=== PATIENT | female | born 1995 | race Caucasian/White ===

== ENCOUNTER → 2019-12-25 10:22 | Outpatient (BNVA) | payer OTHER, SELFPAY | PROVIDERS: Family Provider Family Medicine; PCP Family Medicine; Visit Provider Nurse Practitioner | DX: J02.9 Acute pharyngitis, unspecified (principal); R50.9 Fever, unspecified; J06.9 Acute upper respiratory infection, unspecified | CPT/HCPCS: 87081; 87804; 87880 ==

== ENCOUNTER → 2021-06-21 14:40 | Outpatient (BNVA) | payer OTHER, SELFPAY | PROVIDERS: Family Provider Family Medicine; PCP Family Medicine; Visit Provider Nurse Practitioner Women's Health | DX: Z01.419 Encounter for gynecological examination (general) (routine) without abnormal findings (principal); Z11.3 Encounter for screening for infections with a predominantly sexual mode of transmission; N76.3 Subacute and chronic vulvitis; Z01.411 Encounter for gynecological examination (general) (routine) with abnormal findings; Z30.45 Encounter for surveillance of transdermal patch hormonal contraceptive device | CPT/HCPCS: 87491; 87591; 87661; 88175 ==

== ENCOUNTER → 2021-09-29 15:35 | Outpatient (BNVA) | payer OTHER, SELFPAY | PROVIDERS: Family Provider Family Medicine; PCP Family Medicine; Visit Provider Nurse Practitioner Women's Health | DX: N76.3 Subacute and chronic vulvitis (principal) | CPT/HCPCS: 88305 ==

== ENCOUNTER → 2022-04-21 14:25 | Outpatient (BNVA) | payer OTHER, SELFPAY | PROVIDERS: Family Provider Family Medicine; PCP Family Medicine; Visit Provider Nurse Practitioner Women's Health | DX: L25.9 Unspecified contact dermatitis, unspecified cause (principal); Z11.3 Encounter for screening for infections with a predominantly sexual mode of transmission; N76.0 Acute vaginitis; B96.89 Other specified bacterial agents as the cause of diseases classified elsewhere | CPT/HCPCS: 86592; 86803; 87340; 87491; 87591; 87661; 87806 ==

== ENCOUNTER → 2022-04-26 10:30 | Outpatient (BNVA) | payer OTHER, SELFPAY | PROVIDERS: Family Provider Family Medicine; PCP Family Medicine; Visit Provider Nurse Practitioner Women's Health | DX: Z21 Asymptomatic human immunodeficiency virus [HIV] infection status (principal) | CPT/HCPCS: 87536 ==

== ENCOUNTER 2022-07-18 07:51 | Outpatient (CLI) | payer OTHER, SELFPAY ==
--- NOTE | 2022-07-18 07:57 | US_ITS ---
WS: [id number] ULTRASOUND LEFT BREAST HISTORY: N63.20 - Unspecified lump in the left breast, 27-year-old. COMPARISON: None available. TECHNIQUE: 2-D and Doppler. Ultrasound directed to the 3:00 in the area the palpable abnormality. There is normal dense fibroglan dular breast tissue. No mass or distortion. No shadowing. No cyst. US/US breast LT limited* [id number] IMPRESSION: BI-RADS: 1-Negative FOLLOW-UP: See Report No mass identified LEFT breast at 3:00 in the area of clinical concern.
== END 2022-07-18 07:52 | disposition home or self-care (01) ==
LOC: RAD 07:51
PROVIDERS: PCP Family Medicine; Visit Provider Nurse Practitioner Women's Health
DX: N63.25 Unspecified lump in the left breast, overlapping quadrants (principal)
CPT/HCPCS: 76642

== ENCOUNTER 2022-08-25 07:35 | Outpatient (CLI) | payer OTHER, SELFPAY ==
--- NOTE | 2022-08-25 07:15 | MR_ITS ---
WS: [id number] MRI LEFT KNEE NONCONTRAST TECHNIQUE: Axial PD, coronal PD fat sat, coronal PD, sagittal PD, and sagittal PD fat-sat images obta ined. CLINICAL INFORMATION: possible ACL tear on left COMPARISON: None. FINDINGS: Distal quadriceps tendon is intact. Patellar tendon appears intact. Moderate suprapatellar effusion f usion. Lateral dislocation/subluxation of the patella from the trochlear groove. Shallow trochlear gr oove. High-grade tear of the medial patellar retinaculum. Typical patellar dislocation contusion bethany mary jo involving the medial pole of the patella and lateral femoral condyle with T2 hyperintensity in fu janna. No definite visualized intra-articular chondral afragments. Peripheral extrusion of the lateral meniscus with grade IV chondromalacia and full-thickness cartilag e defects. Tear of the lateral meniscus extending to the meniscal root. Fluid extending along the per ipheral undersurface of the meniscus compatible with capsular tear. Suggestion of a small displaced f ragment into the intercondylar fossa. Blunting of the anterior horn. Additional subchondral cystic ch she and edema involving the lateral femoral condyle has a more chronic appearance. Small amount of fluid and edema along the MCL. LCL appears intact. Normal popliteal fossa. MR/MR knee LT wo con* [id number] IMPRESSION: 1. Normal ACL and PCL. 2. Persistent patella subluxation/dislocation from the shallow trochlear groov e. Typical patella and femoral condyle contusion pattern. 3. High-grade tear of the medial patellar retinaculum. Small amount of edema a nd fluid along the MCL consistent with grade one injury. 4. No visualized avulsed intra-articular chondral fragments. 5. Peripheral extrusion lateral meniscus with complex high-grade tears some of which may be chronic. Full-thickness cartilage defects involving the lateral j oint compartment. Tear extends to the meniscal root and free edge of the menisc us involving the capsule 6. Suggestion of a tiny displaced meniscal fragment in the intercondylar notch . 7. Subchondral cystic change and edema involving the medial femoral condyle. 8. Moderate suprapatellar effusion. Outbridge grading: grade IV: full-thickness cartilage loss with underlying bone reactive changes
== END 2022-08-25 07:36 | disposition home or self-care (01) ==
LOC: RAD 07:36
PROVIDERS: PCP Family Medicine; Visit Provider Family Medicine
DX: S83.512A Sprain of anterior cruciate ligament of left knee, initial encounter (principal); M22.12 Recurrent subluxation of patella, left knee; R60.0 Localized edema; M25.462 Effusion, left knee; S83.272A Complex tear of lateral meniscus, current injury, left knee, initial encounter; X58.XXXA Exposure to other specified factors, initial encounter
CPT/HCPCS: 73721

== ENCOUNTER 2022-10-11 06:37 | Day surgery (SDC) | payer OTHER, SELFPAY ==
[2022-10-10 11:41] VITALS: BMI 37.4
[2022-10-11] VITALS (13 sets, daily range): BP systolic 110–130; BP diastolic 8–96; PULSE 83–102; RESP 12–20; TEMP 36.1–36.3; O2SAT 93–99
--- NOTE | 2022-10-11 07:19 | P.ANESASSM_ITS ---
Pre-Anesthetic Assessment Height/Weight: Height 1.65 m Weight 102.058 kg O2 Del Method 10/11/22 07:02 Preop Diagnosis: Left knee lateral meniscal tear, lateral compartment cho ndromalacia Operation Date: 10/11/22 08:00 Proposed Procedures p Left knee diagnostic and surgical arthroscopy with lateral meniscus root repair 12458 and 43951,S83.282A, M24.10 and S83.005A(Left) - Lawson Araujo DO s Meniscal Root Repair(Left) - Lawson Araujo DO Familial anesthetic complications: None Was Beta Angela taken within 24 hours: N/A Was Clonidine taken within 24 hours: N/A Last intake: Intake Last Liquid Date 10/10/22 Last Liquid Time 23:00 Last Solid Date 10/10/22 Last Solid Time 23:00 Social No alcohol and No tobacco vapes Airway Mallampati: Class I Dentition: caps Metabolic Morbid Obesity Anesthetic Plan ASA status: 2 Anesthesia: General and Regional (specify below) Risk of > 500 ml blood loss (7ml/kg in children): No Medications/Allergies Home Medications Medication Instructions Recorded Confirmed Last Taken Type phentermine 37.5 mg capsule 37.5 mg PO DAILY 06/21/21 10/10/22 10/03/22 History ketoconazole 2 % topical cream 1 applic topical BID PRN Rash 04/21/22 10/10/22 Unknown History Xulane 150 mcg-35 mcg/24 hr 1 patch transdermal Q7D #9 ea 06/21/22 10/10/22 10/09/22 Rx transdermal patch (norelgestromin-ethin.estradiol) hydroxyzine HCl 50 mg tablet 50 mg PO BID PRN Anxiety 06/21/22 10/10/22 07/03/22 History ibuprofen 800 mg tablet 800 mg PO TID PRN pain #60 tabs 08/16/22 10/10/22 10/03/22 Rx Allergies Allergy/AdvReac Type Severity Reaction Status Date / Time amoxicillin Allergy ALGY-Rash Verified 10/10/22 11:32 [facility] Anesthesia Medical History (Updated 09/18/22 @ 13:26 by Lawson Araujo DO) Anxiety started on Vistaril; managed by Neva Merchant Closed dislocation of left patella Defect of articular cartilage Depression Hypertension managed by PCP; not taking medication and readings have been normal. No pertinent past medical history neghx: dm,thyroid,dvt/pe PCP: Dr. Matos Tear of lateral meniscus of left knee Surgical History H/O knee surgery (2008) Left knee History of tonsillectomy Family History Father Diabetes Heart disease Hypertension Stroke Grandmother Diabetes Paternal grandmother Family history of thyroid problem Maternal grandmother Grandfather Diabetes Paternal grandfather Heart disease Maternal and Paternal grandfather Hypertension Paternal grandfather Mother Family history of thyroid problem Family/Other Family history of thyroid problem Maternal aunt Cervical cancer Maternal cousin--dx age unknown Breast cancer Paternal aunt--dx age unknown Maternal great aunt--dx age 50-60's Denies family history of Colon cancer Ovarian cancer Hyperlipidemia Uterine cancer Social History Smoking and tobacco status: current every day smoker (currently vapes) Data Anesthesia Cardiac Studies: No Data to Display
[2022-10-11] MEDS: acetaminophen 1,000 MG/100 ML PIGGYBACK 400 MG IV (07:38)
[2022-10-11] MEDS: ketorolac 30 mg/mL INJ IVP (07:39)
[2022-10-11] MEDS: sodium chloride 0.9% 1,000 ML 30 ML IV (07:39)
[2022-10-11] MEDS: midazolam 1 mg/mL INJ 2 mL 2 MG IVP (07:39)
--- NOTE | 2022-10-11 07:51 | W.PM.OPSUD ---
Surgery/Procedure H&P Update DATE OF PROCEDURE: October 11, 2022 DATE H&P PERFORMED: 09/18/22 CHANGES TO PREVIOUS DOCUMENTATION: None. Once again we did reiterate her injury to her knee with patellar dislocation and this being her first time dislocation. We will evaluate and treat the lateral meniscus tear and evaluate the chondromalacia of the lateral compartment. We did talk about her rehabilitation process with Dr. Shelton risk benefits complication alternatives surgical nonsurgical treatment options. She understanding her risks she agrees to proceed with surgical intervention of the left knee diagnostic and surgical arthroscopy with lateral meniscus repair possible root repair and lateral compartment chondroplasty versus microfracturing. We will see how she responds to conservative treatment with her first-time patellar dislocation however she is at higher risk given her TT TG distance. She understands and agrees to proceed with surgical intervention today. PREOP DIAGNOSIS: Left knee lateral meniscal tear, lateral compartment chondromalacia PRIMARY INDICATION FOR PROCEDURE: Left knee lateral meniscus tear, lateral compartment chondromalacia PLANNED PROCEDURE: Operation Date: 10/11/22 08:00 Proposed Procedures p Left knee diagnostic and surgical arthroscopy with lateral meniscus root repair 55368 and 32856,S83.282A, M24.10 and S83.005A(Left) - Lawson Araujo DO s Meniscal Root Repair(Left) - Lawson Araujo DO
--- NOTE | 2022-10-11 07:52 | ANES.PROC ---
Anesthesia Procedures Procedure/Date: 10/11/22 Nerve Block ^: Nerve Block 1: Main Anesthesia: general anesthesia Time Out Performed: Yes Consent: requested by attending/covering physician, from patient, from other, risks and benefits reviewed and patient agrees to proceed Nerve block location: adductor canal (L) Anesthesia monitors applied: pulse oximetry, EKG, BP cuff and oxygen Nerve block position: supine Anesthetic Used: ropivicaine 0.5% (30 ml) and with decadron (4 mg) Ultrasound used to: recognize landmarks and visualize and ID femerol nerve Nerve Stimulator Used?: No Interscalene/Femoral BLK: 4 stimuplex 21 g needle used for position and inplane approach, visualize local anesthetic spread and no vascular puncture identified Injection: neg aspiration of heme Patient Tolerated Procedure: well and no complications Complications: none
[2022-10-11 07:56] LABS: OR HCG Qualitative Urine Negative (Negative)
[2022-10-11] MEDS: clindamycin 600 MG/50 ML PREMIX 100 MG IV (08:10)
--- NOTE | 2022-10-11 09:28 | P.PCN_ITS ---
PACU note Narrative: VSS, Good respiratory effort, report to SHADE BANDER Exam: awake
--- NOTE | 2022-10-11 09:28 | PM.PACU ---
PACU note Narrative: VSS, Good respiratory effort, report to PRESCHOOL ASSISTANT Exam: awake
--- NOTE | 2022-10-11 09:41 | P.OP_ITS ---
Brief Operative Note Date of procedure: 10/15/22 Pre-op diagnosis: Left knee lateral meniscal tear, lateral compartment chondro malacia Post-op diagnosis: other (Left knee lateral compartment chondromalacia and extensive synovitis, no meniscal tear) Procedure Done: Left knee diagnostic and surgical arthroscopy with extensive synovectomy lateral, medial, patellofemoral compartments Left knee diagnostic and surgical arthroscopy with lateral compartment chondroplasty. Surgeon: Laswon Araujo Estimated blood loss (mL): 5 Complications: None Post-op Plan: Patient taken to PACU in stable condition recovering well. Patient received appropriate discharge directions as well as pain medication postoperatively. She will be weightbearing as tolerated to the left lower extremity we will begin rehabilitation for her left knee patellar dislocation. She will follow-up with me in the office in 2 weeks. Patient understands agrees with current plan. All questions answered. Condition: stable Disposition: same day Coding Level of Care Code Acute Content Development Specialist for Lynette Benjamin
--- NOTE | 2022-10-11 09:41 | PM.PACU ---
PACU note Narrative: Patient taken to PACU in stable condition. Patient recovering well. Patient able to wiggle toes plantarflex and dorsiflex ankle. Sensation intact light touch distally. Distal pulses palpable. Dressing on in place clean dry and intact Exam: awake Disposition: discharged
--- NOTE | 2022-10-11 09:41 | PM.OP ---
Operative Report Date of procedure: October 11, 2022 Pre-op diagnosis: Preop Diagnosis Left knee lateral meniscal tear, lateral compartment chondromalacia Post-op diagnosis: Left knee lateral compartment chondromalacia Left knee extensive synovitis Procedure done: Left knee diagnostic and surgical arthroscopy with extensive synovectomy lateral, medial, patellofemoral compartments Left knee diagnostic and surgical arthroscopy with lateral compartment chondroplasty Surgeon: Lawson Araujo DO Estimated blood loss: 5 mL 35 minutes IV fluids: See anesthesia record Urine output: See anesthesia record Complications: None Findings: See operative report narrative Condition: stable Disposition: same day Brief History: Patient was seen evaluated and worked up in the outpatient setting for a left knee injury. MRI reveals that patient had a patellar dislocation as well as findings consistent with a lateral meniscal root tear and lateral compartment grade IV chondromalacia as well as MPFL injury and bone bruising consistent with a prior patellar dislocation. History reveals this was her first time dislocation. She did have a OCD lesion back according to patient when she was roughly [age] done in [place] where she underwent retrograde drilling and subsequently bio tack screws were placed to repair the chondral injury in the lateral compartment. At this point time we had a detailed discussion in the outpatient setting about her MRI findings as well as physical exam findings. Given she has had no issues with patellar instability prior to this injury but she does have concerning finding of meniscal root injury as well as chondromalacia and given her young age we talked about focusing on her intra-articular articular pathology. At this point in time we talked about nonoperative and operative intervention. We talked about risk benefits complication alternatives to each. At this point time would recommend left knee diagnostic and surgical arthroscopy with evaluation of meniscal tear with repair and lateral compartment chondroplasty versus microfracturing. Plan was to treat the first time dislocation with therapy and rehab and will address at a later date if recurrent patellar instability ends up occurring. She understands and agrees to proceed with current plan. All questions answered at this time. Consent reviewed and signed with patient. Procedure: Patient seen evaluated in preoperative holding area. Consent reviewed and signed with patient. Correct extremity was then marked. Patient was seen evaluated by the anesthesia department. Once cleared for surgery she was taken back to the operative suite. She was placed in supine position and underwent anesthesia per the anesthesia department. All bony prominences well-padded patient was appropriate secured to the bed. The left lower extremity was then prepped and draped in standard orthopedic fashion. Prior to prepping and draping a nonsterile tourniquet applied to the left lower extremity thigh. Final timeout performed. Patient received appropriate preoperative antibiotics. Esmarch tourniquet was used exsanguinate the left lower extremity to 250 mmHg. Patient had previous portal sites that were horizontal in nature she underwent a 2 portal horizontal incision diagnostic and surgical arthroscopy. Starting with inferior lateral portal and horizontal fashion. I then introduced the trocar and the arthroscope into the suprapatellar pouch. Visualization of the suprapatellar pouch was free of loose bodies. No hemorrhagic hemarthrosis was noted. Next I then evaluated the patellofemoral compartment which had extensive synovitis and impingement underneath the patellofemoral compartment. Next I then visualized the medial gutter which was free of loose bodies. I then entered the medial compartment and established my medial portal utilizing a spinal needle outside in technique. Another horizontal incision was then made in the arthroscopic shaver was then introduced to the medial compartment. I then used a shaver to perform a medial compartment synovectomy. I then under valgus stress evaluated the medial compartment which had grade I chondromalacia and overall pristine articular cartilage as well as pristine meniscus. I introduced the arthroscopic probe and probed the root to the medial meniscus the medial meniscus was intact. This completed my work medially and I introduced the arthroscope to the intercondylar notch the intercondylar notch had an intact ACL and PCL and I did perform a small synovectomy of the intercondylar notch area. Next the knee was placed into a [id number] positioning and arthroscope immediately identified a small unstable cartilage piece very focal on the weightbearing portion of the lateral femoral condyle. This was grade 2 3 and the small focal area. Shaver was used to debride to stable tissue. This was not taken down to subchondral bone as given patient's age plan was to preserve as much articular cartilage as possible. Next the knee was then held in [id number] position and I then evaluated the lateral meniscus. The lateral meniscus was found to be pristine with no meniscal root tear when this was probed with arthroscopic probe. I did visualize a small remnant of what appeared to be at the footprint of the ACL traversing across the lateral tibial plateau along the lateral edge of the ACL originating near the footprint by the anterior horn and extending posteriorly near the meniscal root. This was evaluated and not found to be any reminiscent of a previous meniscal tear and this did not actually have fibers that appear to be completely congruent with the ACL and the ACL bundles appeared intact. At this point time the small band of tissue was excised and I do feel as though this was likely the cause of the signal change concerning for possible complex posterior horn meniscal tear of the lateral meniscus extending to the root. Once this was removed I then utilized the arthroscopic probe and the lateral meniscal root was once again probed and found to be an intact with no evidence of lateral meniscal tear. At this point time I then thoroughly evaluated the lateral compartment and at the area of which the kneecap dislocated on the nonweightbearing portion of the lateral femoral condyle there did appear to be a large grade IV chondromalacia of this area of the lateral femoral condyle. A lateral compartment chondroplasty was then performed utilizing arthroscopic shaver and thermal wand to debride to stable tissue. This was nonweightbearing in nature at this point time I felt no necessary need for any planned of complex OCD repair as this was nonweightbearing in nature. Next I evaluated the lateral gutter which was free of loose bodies. I then brought myself back into the patellofemoral compartment and performed my extensive synovectomy. The patella appeared to tilt slightly lateral but was within the groove. I then test its stability and was unable to dislocate the kneecap with translation. Patient would translate to the lateral femoral condyle but no bernardo instability or dislocation was able to be reproduced. At this point time the knee was thoroughly irrigated. Fluid was suctioned from the knee all instruments and trochars and arthroscope were removed. Tourniquet deflated. Hemostasis satisfactory. Portal sites were then closed with interrupted nylon suture. Xeroform 4 x 4's and a bulky soft dressing and Everette wrap were then applied to the left lower extremity. Patient was then awakened from anesthesia and taken to PACU in stable condition. Disposition: Patient taken to PACU stable condition. Patient recovering well. Pain controlled. She will be weightbearing as tolerated to the left lower extremity. She received appropriate discharge instructions as well as pain medication DVT prophylaxis postoperatively. We will begin an aggressive PT for working on strengthening and range of motion as well as rehabilitation for VMO in order to conservatively treat her patellar dislocation. We will get her in a patellar stabilizing brace. We will see her back in the office in 2 weeks. Patient understands and agrees with current plan. All questions answered.
[2022-10-11] MEDS: meperidine 50 mg/mL INJ 12.5 MG IVP (09:47)
--- NOTE | 2022-10-11 12:54 | ANE.PACU2 ---
Inpatient post-anesthesia follow up: Airway intact: Yes Vital signs: Temperature 97.0 F Pulse Rate 87 Respiratory Rate 18 Blood Pressure 129/85 Pulse Oximetry 99 Oxygen Delivery Me thod Room Air Oxygen Flow Rate 95 Fraction of Inspir ed Oxygen Hydration adequate: Yes Nausea and vomiting: No Pain level: 1 Mental status: Baseline
== END 2022-10-11 10:43 | disposition home or self-care (01) ==
PROVIDERS: Anesthesiology; PCP Family Medicine; Visit Provider Student in an Organized Health Care Education/Training Program
PROC: (CPT 29870; principal; 2022-10-11 07:50)
DX: M94.262 Chondromalacia, left knee (principal); M65.9 Synovitis and tenosynovitis, unspecified; E66.01 Morbid (severe) obesity due to excess calories; Z68.37 Body mass index [BMI] 37.0-37.9, adult; I10 Essential (primary) hypertension; F17.290 Nicotine dependence, other tobacco product, uncomplicated
CPT/HCPCS: 29876; 81025; 84703; J0131; J1100; J1885; J2175; J2250; J2704; J2795; J3010; J3490; J7030

== ENCOUNTER 2022-10-26 14:15 | Outpatient (CLI) | payer OTHER, SELFPAY | END 2022-10-26 14:16 | disposition home or self-care (01) | LOC: SPT 14:16 | PROVIDERS: PCP Family Medicine; Visit Provider Student in an Organized Health Care Education/Training Program | DX: Z47.89 Encounter for other orthopedic aftercare (principal) | CPT/HCPCS: 97760; L1812 ==

== ENCOUNTER 2022-11-10 09:41 | Outpatient (RCR) | payer OTHER, SELFPAY | END 2022-11-14 23:59 | disposition home or self-care (01) | LOC: SPT 09:41 | PROVIDERS: PCP Family Medicine; Visit Provider Family Medicine | DX: Z98.890 Other specified postprocedural states (principal) | CPT/HCPCS: 97161 ==

== ENCOUNTER 2022-11-15 06:00 | Outpatient (RCR) | payer OTHER, SELFPAY | END 2022-12-12 23:59 | disposition home or self-care (01) | LOC: SPT 06:00 | PROVIDERS: PCP Family Medicine; Visit Provider Family Medicine | DX: Z98.890 Other specified postprocedural states (principal) | CPT/HCPCS: 97110; G0283 ==

== ENCOUNTER → 2022-12-08 09:24 | Outpatient (BNVA) | payer OTHER, SELFPAY | PROVIDERS: PCP Family Medicine; Visit Provider Nurse Practitioner Women's Health | DX: Z32.00 Encounter for pregnancy test, result unknown (principal); N92.6 Irregular menstruation, unspecified | CPT/HCPCS: 81025; 84315 ==

== ENCOUNTER 2022-12-13 06:00 | Outpatient (RCR) | payer OTHER, SELFPAY | END 2022-12-28 23:59 | disposition home or self-care (01) | LOC: SPT 06:00 | PROVIDERS: PCP Family Medicine; Visit Provider Family Medicine | DX: Z98.890 Other specified postprocedural states (principal) | CPT/HCPCS: 97110 ==

== ENCOUNTER → 2022-12-19 13:43 | Outpatient (BNVA) | payer OTHER, SELFPAY | PROVIDERS: PCP Family Medicine; Visit Provider Family Medicine | DX: Z34.90 Encounter for supervision of normal pregnancy, unspecified, unspecified trimester (principal); R30.0 Dysuria; Z34.00 Encounter for supervision of normal first pregnancy, unspecified trimester | CPT/HCPCS: 80307; 81000; 81025; 84144; 84443; 84702; 85025; 86592; 86762; 86803; 86850; 86900; 87086; 87340; 87491; 87591; 87624; 87806 ==

== ENCOUNTER 2023-01-12 09:05 | Outpatient (CLI) | payer OTHER, SELFPAY ==
--- NOTE | 2023-01-12 09:15 | US_ITS ---
WS: [id number] EARLY OBSTETRICAL ULTRASOUND (<14 WEEKS). HISTORY: Dating US - Unclear LMP COMPARISON: None available. Single intrauterine gestational sac is identified. Cardiac activity at 167 BPM. [place]-rump length tenisha sures 7.0 cm which corresponds to a gestation of 13w1d. Normal-appearing yolk sac and amnion demonstr ated. No subchorionic hemorrhage. No free fluid. Normal size ovaries with no mass. US/US OB <= 14 weeks fetus [id number] IMPRESSION: 1. Single intrauterine gestation of 13 weeks 1 day with an EDC of 07/19/2023. 2. Normal cardiac activity.
== END 2023-01-12 09:06 | disposition home or self-care (01) ==
PROVIDERS: PCP Family Medicine; Visit Provider Family Medicine
DX: Z36.87 Encounter for antenatal screening for uncertain dates (principal); Z3A.13 13 weeks gestation of pregnancy
CPT/HCPCS: 76801

== ENCOUNTER → 2023-01-24 09:39 | Outpatient (BNVA) | payer MEDICAID, SELFPAY | PROVIDERS: PCP Family Medicine; Visit Provider Family Medicine | DX: O16.9 Unspecified maternal hypertension, unspecified trimester (principal); Z3A.00 Weeks of gestation of pregnancy not specified | CPT/HCPCS: 84156 ==

== ENCOUNTER → 2023-02-12 10:39 | Outpatient (BNVA) | payer MEDICAID, SELFPAY | PROVIDERS: PCP Family Medicine; Visit Provider Family Medicine | DX: Z34.00 Encounter for supervision of normal first pregnancy, unspecified trimester (principal); R03.0 Elevated blood-pressure reading, without diagnosis of hypertension | CPT/HCPCS: 81511 ==

== ENCOUNTER 2023-03-08 08:44 | Outpatient (CLI) | payer MEDICAID, SELFPAY ==
--- NOTE | 2023-03-08 08:45 | US_ITS ---
WS: [id number] ULTRASOUND OB COMPLETE TECHNIQUE: Complete ultrasound. CLINICAL INFORMATION: Anatomy US - 6 weeks from now COMPARISON: January 12, 2023 FINDINGS: Cervix measures 3.4 cm Single interuterine gestation is identified with vertex presentation. Placenta is anterior. Placenta grade 0. Normal amniotic fluid volume. cardiac activity: 141 BPM. AGA: 21w3d TATY by ultrasound: 07/16/2023 Estimated weight: 422 g; 15 ounces BDP: 4.9 cm = 20w6d HC: 19.0 cm = 21w2d AC: 14.8 cm = 20w0d FEMUR LENGTH: 4.0 cm = 23w0d Anatomic survey:Incomplete four-chamber heart view. Incomplete profile. Anatomic survey is otherwise normal. Normal stomach. Kidneys and bladder are normal. Normal 3 vessel cord. Normal 3 vessel cord insertion. Normal spine. Intracranial contents are normal. Normal posterio r fossa and cisterna magna. US/US OB >= 14 weeks fetus [id number] IMPRESSION: 1. Single intrauterine with visualized cardiac activity. AGA 21w3d w ith TATY 07/16/2023. 2. Placenta is anterior. No evidence of abruption or previa. 3. Incomplete four-chamber heart view. Incomplete profile. 4. Anatomic survey otherwise normal. 5. Normal amniotic fluid volume.
== END 2023-03-08 08:45 | disposition home or self-care (01) ==
LOC: RAD 08:45
PROVIDERS: PCP Family Medicine; Visit Provider Family Medicine
DX: Z36.9 Encounter for antenatal screening, unspecified (principal)
CPT/HCPCS: 76805

== ENCOUNTER 2023-04-02 07:45 | Outpatient (CLI) | payer MEDICAID, SELFPAY ==
--- NOTE | 2023-04-02 08:00 | US_ITS ---
WS: [id number] ULTRASOUND OB FOCUSED HISTORY: Follow up heart, lips and nose. COMPARISON: 03/08/2023 Intrauterine gestation in cephalic position. Cervix is closed at 3.7 cm. Normal amount of surrounding amniotic fluid. heart rate at 150 BPM. Four-chamber heart is identified. Normal position of the heart. Normal outflow tracts. Additional jose ging of the nose and lips has been submitted which appears normal also. US/US OB limited [id number] IMPRESSION: Normal additional imaging of the heart including outflow tracts, lips and nose.
== END 2023-04-02 07:46 | disposition home or self-care (01) ==
PROVIDERS: PCP Family Medicine; Visit Provider Family Medicine
DX: Z34.00 Encounter for supervision of normal first pregnancy, unspecified trimester (principal)
CPT/HCPCS: 76815

== ENCOUNTER → 2023-04-23 10:09 | Outpatient (BNVA) | payer MEDICAID, SELFPAY | PROVIDERS: PCP Family Medicine; Visit Provider Family Medicine | DX: Z34.00 Encounter for supervision of normal first pregnancy, unspecified trimester (principal); Z3A.00 Weeks of gestation of pregnancy not specified; R03.0 Elevated blood-pressure reading, without diagnosis of hypertension | CPT/HCPCS: 82950 ==

== ENCOUNTER → 2023-04-27 10:02 | Day surgery (SDC) | payer MEDICAID, SELFPAY ==
[2023-04-27 10:10] VITALS: BP 148/87; PULSE 128; RESP 18; TEMP 36.3; O2SAT 98
[2023-04-27 12:06] VITALS: BP 148/87; PULSE 128; RESP 18; TEMP 36.3; O2SAT 98
== END ==
LOC: GILAB 10:03
PROVIDERS: PCP Family Medicine; Visit Provider Family Medicine
DX: O26.899 Other specified pregnancy related conditions, unspecified trimester (principal); Z67.91 Unspecified blood type, Rh negative; Z3A.00 Weeks of gestation of pregnancy not specified
CPT/HCPCS: 36415; 86850; 86900; 90384; 96372

== ENCOUNTER → 2023-05-09 09:09 | Outpatient (BNVA) | payer MEDICAID, SELFPAY | PROVIDERS: PCP Family Medicine; Visit Provider Family Medicine | DX: O99.810 Abnormal glucose complicating pregnancy (principal); Z3A.00 Weeks of gestation of pregnancy not specified | CPT/HCPCS: 82951; 82952 ==

== ENCOUNTER → 2023-05-21 11:27 | Outpatient (BNVA) | payer MEDICAID, SELFPAY | PROVIDERS: PCP Family Medicine; Visit Provider Family Medicine | DX: Z34.00 Encounter for supervision of normal first pregnancy, unspecified trimester (principal); Z3A.00 Weeks of gestation of pregnancy not specified; R03.0 Elevated blood-pressure reading, without diagnosis of hypertension; I10 Essential (primary) hypertension; Z51.81 Encounter for therapeutic drug level monitoring | CPT/HCPCS: 80053; 82570; 84156; 84550; 85025 ==

== ENCOUNTER → 2023-06-19 10:26 | Outpatient (BNVA) | payer MEDICAID, SELFPAY | PROVIDERS: PCP Family Medicine; Visit Provider Family Medicine | DX: O13.9 Gestational [pregnancy-induced] hypertension without significant proteinuria, unspecified trimester (principal); O09.93 Supervision of high risk pregnancy, unspecified, third trimester; I10 Essential (primary) hypertension; Z3A.00 Weeks of gestation of pregnancy not specified | CPT/HCPCS: 82570; 84156 ==

== ENCOUNTER 2023-06-21 09:55 | Outpatient (CLI) | payer MEDICAID, SELFPAY ==
--- NOTE | 2023-06-21 10:00 | US_ITS ---
WS: [id number] BIOPHYSICAL PROFILE AND LIMITED OB. HISTORY: gestational HTN COMPARISON: 01/12/2023, 04/02/2023 Presentation: Vertex. Cervix: Closed and normal length. Placenta: Anterior, no previa or abruption. Grade: 1 HEART: FHR of 153BPM. measurements: BPD = 8.8 cm = 35w3d; 57th percentile HC = 32.6 cm = 36w6d; 57th percentile AC = 30.5 cm = 34w3d; 34th percentile FL = 6.9 cm = 35w1d; 41st percentile ABELINO: 18.1 centimeters. EFW: 2572g; 57th percentile AGA by ultrasound: 35w3d TATY by ultrasound: 07/23/2023 Measurements are internally concordant. Appropriate growth since the first trimester ultrasound. Biophysical profile: Parameters are as follows: Breathin Movement: 2 Tone: 2 Fluid volume: 2 IMPRESSION: 1. Biophysical profile score: 8/8. 2. Single intrauterine gestation of 35w3d with an EDC of 07/23/2023. Appropriate growth since the fir st trimester ultrasound. No growth asymmetry. 3. Normal amniotic fluid.
== END 2023-06-21 09:56 | disposition home or self-care (01) ==
LOC: RAD 09:55
PROVIDERS: PCP Family Medicine; Visit Provider Family Medicine
DX: O13.3 Gestational [pregnancy-induced] hypertension without significant proteinuria, third trimester (principal); O09.93 Supervision of high risk pregnancy, unspecified, third trimester; Z3A.35 35 weeks gestation of pregnancy
CPT/HCPCS: 76815; 82570; 84156

== ENCOUNTER 2023-06-25 10:39 | Outpatient (CLI) | payer MEDICAID, SELFPAY ==
[2023-06-25 10:39] VITALS: BMI 46.7
[2023-06-25 10:58] VITALS: BP 165/104; PULSE 114
[2023-06-25 11:13] VITALS: BP 163/95; PULSE 108
[2023-06-25 11:20] VITALS: BP 127/74; PULSE 103
[2023-06-25 11:23] VITALS: BP 128/76; PULSE 110
[2023-06-25 11:27] VITALS: BP 128/79; PULSE 100
[2023-06-25 11:44] VITALS: BP 124/77; PULSE 102
== END 2023-06-25 11:50 | disposition home or self-care (01) ==
LOC: OPOB 10:48 → OBGYN 10:49
PROVIDERS: PCP Family Medicine; Visit Provider Family Medicine
DX: O24.419 Gestational diabetes mellitus in pregnancy, unspecified control (principal); Z3A.00 Weeks of gestation of pregnancy not specified
CPT/HCPCS: 59025; 84156; 99211

== ENCOUNTER → 2023-06-26 10:29 | Outpatient (BNVA) | payer MEDICAID, SELFPAY | PROVIDERS: PCP Family Medicine; Visit Provider Family Medicine | DX: O09.93 Supervision of high risk pregnancy, unspecified, third trimester (principal) | CPT/HCPCS: 87081 ==

== ENCOUNTER 2023-06-28 09:47 | Outpatient (CLI) | payer MEDICAID, SELFPAY ==
--- NOTE | 2023-06-28 09:45 | US_ITS ---
WS: [id number] BIOPHYSICAL PROFILE AMNIOTIC FLUID HISTORY: gestational HTN COMPARISON: 06/21/2023 position: Vertex. Cardiac activity: 153 bpm. Cervix: Obscured by the head. Parameters are as follows: Breathin Movement: 2 Tone: 2 Fluid volume: 2 Amniotic Fluid Index: 17.7 cm; single deep vertical pocket 6.0 cm. IMPRESSION: 1. Biophysical profile score: 8/8. 2. Normal amniotic fluid.
== END 2023-06-28 09:48 | disposition home or self-care (01) ==
PROVIDERS: PCP Family Medicine; Visit Provider Family Medicine
DX: O13.9 Gestational [pregnancy-induced] hypertension without significant proteinuria, unspecified trimester (principal); Z3A.00 Weeks of gestation of pregnancy not specified
CPT/HCPCS: 76815

== ENCOUNTER 2023-07-02 11:11 | Outpatient (CLI) | payer MEDICAID, SELFPAY ==
[2023-07-02 11:29] VITALS: BMI 47.2
[2023-07-02 11:32] VITALS: BP 134/89; PULSE 92
[2023-07-02 12:00] VITALS: RESP 18
[2023-07-02 12:11] VITALS: BP 143/86; PULSE 90
== END 2023-07-02 12:20 | disposition home or self-care (01) ==
LOC: OPOB 11:13 → OBGYN 11:16
PROVIDERS: PCP Family Medicine; Visit Provider Family Medicine
DX: O24.419 Gestational diabetes mellitus in pregnancy, unspecified control (principal); Z3A.00 Weeks of gestation of pregnancy not specified
CPT/HCPCS: 59025

== ENCOUNTER 2023-07-05 10:18 | Outpatient (CLI) | payer MEDICAID, SELFPAY ==
--- NOTE | 2023-07-05 10:15 | US_ITS ---
WS: [id number] BIOPHYSICAL PROFILE AND LIMITED OB. HISTORY: gestational HTN COMPARISON: 06/28/2023 Presentation: Vertex. Cervix: Closed and normal length. Placenta: Anterior, no previa or abruption. Grade: 1 HEART: FHR of 147BPM. Biophysical profile: Parameters are as follows: Breathin Movement: 2 Tone: 2 Fluid volume: 2 Amniotic fluid index: 19.9 cm. Single deep vertical pocket 6.8 cm. IMPRESSION: 1. Biophysical profile score: 8/8. 2. Normal amniotic fluid.
== END 2023-07-05 10:19 | disposition home or self-care (01) ==
PROVIDERS: PCP Family Medicine; Visit Provider Family Medicine
DX: O13.9 Gestational [pregnancy-induced] hypertension without significant proteinuria, unspecified trimester (principal); Z3A.00 Weeks of gestation of pregnancy not specified
CPT/HCPCS: 76815; 76819

== ENCOUNTER 2023-07-08 11:31 | Outpatient (CLI) | payer MEDICAID, SELFPAY ==
[2023-07-08 11:31] VITALS: BMI 47.7
[2023-07-08 11:52] VITALS: BP 143/89; PULSE 100; TEMP 36
[2023-07-08 12:08] VITALS: BP 153/96; PULSE 98
[2023-07-08 12:23] VITALS: BP 142/91; PULSE 96
[2023-07-08 12:58] VITALS: BP 142/91; PULSE 96
== END 2023-07-08 12:35 | disposition home or self-care (01) ==
LOC: OPOB 11:40 → OBGYN 11:41
PROVIDERS: PCP Family Medicine; Visit Provider Family Medicine
DX: O26.899 Other specified pregnancy related conditions, unspecified trimester (principal); R10.9 Unspecified abdominal pain
CPT/HCPCS: 59025; 99211

== ENCOUNTER 2023-07-09 11:42 | Outpatient (CLI) | payer MEDICAID, SELFPAY ==
[2023-07-09 11:50] VITALS: BP 193/109; PULSE 100
[2023-07-09 11:58] VITALS: BP 160/104; PULSE 107
[2023-07-09 12:01] VITALS: RESP 16
[2023-07-09 12:04] VITALS: BP 150/99; PULSE 103
[2023-07-09 12:22] VITALS: BP 150/99; PULSE 103
== END 2023-07-09 12:25 | disposition home or self-care (01) ==
LOC: OPOB 11:42 → OBGYN 11:44
PROVIDERS: PCP Family Medicine; Visit Provider Family Medicine
DX: O26.899 Other specified pregnancy related conditions, unspecified trimester (principal); Z3A.00 Weeks of gestation of pregnancy not specified
CPT/HCPCS: 59025

== ENCOUNTER → 2023-07-10 10:44 | Outpatient (BNVA) | payer MEDICAID, SELFPAY | PROVIDERS: PCP Family Medicine; Visit Provider Family Medicine | DX: O13.9 Gestational [pregnancy-induced] hypertension without significant proteinuria, unspecified trimester | CPT/HCPCS: 84156 ==

== ENCOUNTER 2023-07-16 09:13 | Outpatient (CLI) | payer MEDICAID, SELFPAY ==
--- NOTE | 2023-07-16 09:30 | US_ITS ---
WS: [id number] ULTRASOUND OB LIMITED TECHNIQUE: Limited ultrasound examination of the fetus. G1, P0 CLINICAL INFORMATION: gestational HTN COMPARISON: 07/05/2023 FINDINGS: Single interuterine gestation. presentation is vertex placental location is anterior. Placenta grade: 2 heart rate 129 BPM. Normal ABELINO 10.4 cm Single deep vertical pocket measuring 4.5 cm Biophysical profile 8 out of 8. breathin movement: 2 tone: 2 Amniotic fluid: 2 IMPRESSION: Normal biophysical profile 8 out of 8
== END 2023-07-16 09:14 | disposition home or self-care (01) ==
LOC: RAD 09:13
PROVIDERS: PCP Family Medicine; Visit Provider Family Medicine
DX: O13.9 Gestational [pregnancy-induced] hypertension without significant proteinuria, unspecified trimester (principal); Z3A.00 Weeks of gestation of pregnancy not specified
CPT/HCPCS: 76819

== ENCOUNTER 2023-07-16 11:22 | Outpatient (CLI) | payer MEDICAID, SELFPAY ==
[2023-07-16 11:35] VITALS: RESP 16; BMI 46.5
[2023-07-16 12:01] VITALS: RESP 16
== END 2023-07-16 12:01 | disposition home or self-care (01) ==
LOC: OPOB 11:22 → OBGYN 11:23
PROVIDERS: PCP Family Medicine; Visit Provider Family Medicine
DX: O24.419 Gestational diabetes mellitus in pregnancy, unspecified control (principal); Z3A.00 Weeks of gestation of pregnancy not specified
CPT/HCPCS: 59025

== ENCOUNTER 2023-07-17 17:50 | Inpatient (IN) | payer MEDICAID, SELFPAY ==
[2023-07-17] VITALS (25 sets, daily range): BP systolic 128–205; BP diastolic 60–123; PULSE 73–88; RESP 12–17; TEMP 37; BMI 43.1
[2023-07-17 18:47] LABS: Basophils % 0.4 %; Eosinophils # 0.2 10^3/uL (0.0-0.8); Hematocrit 35.2 % (36-47); Lymphocytes # 1.7 10^3/uL (0.8-4.8); Lymphocytes % 18.4 %; Mean Corpuscular HGB Conc 33.5 g/dL (30-55); Mean Corpuscular Hemoglobin 29.3 pg (27-33); Mean Corpuscular Volume 87.3 fl (85-98); Mean Platelet Volume 11.6 fL (7.4-10.4); Monocytes # 0.6 10^3/uL (0.2-0.9); Monocytes % 6.9 %; Neutrophils # 6.66 10^3/uL (1.8-7.7); Neutrophils % 71.9 %; Nucleated Red Blood Cells % 0 %; Platelet Count 250 10^3/cmm (157-399); Red Blood Count 4.03 10^6/uL (3.85-5.65); Red Cell Distribution Width 15.9 % (12.1-15.1); White Blood Count 9.28 10^3/uL (3.29-11.43)
[2023-07-17] MEDS: miSOPROStol 100 mcg tablet 25 MCG VAGINAL (18:49)
[2023-07-17 19:10] LABS: Add Urine Microscopic? YES; Bilirubin Urine Neg (Negative); Blood Urine Neg (Negative); Glucose Urine UA Norm (Normal); Ketones Urine Negative (Negative); Leukocyte Esterase Urine Negative (Negative); Nitrate Urine Negative (Negative); Protein Urine Neg (Negative); Specific Gravity, Urine 1.015 (1.005-1.030); Urine Appearance SL Hazy (CLEAR); Urine Color Yellow (Yellow); Urobilinogen Urine Norm (Negative); pH Urine 6 (5-7)
[2023-07-17 19:13] LABS: Alanine Aminotransferase 10 U/L (0-33); Albumin Level 3.3 g/dL (3.5-5.2); Alkaline Phosphatase 113 U/L (35-105); Aspartate Amino Transferase 16 U/L (0-32); Blood Urea Nitrogen 7 mg/dL (6-20); Calcium 8.6 mg/dL (8.5-10.5); Carbon Dioxide 18 mmol/L (22-29); Chloride 105 mmol/L (98-107); Globulin 2.6 g/dL (1.3-4.6); Glomerular Filtration Rate 149.1 mL/min (90-130); Glucose 108 mg/dL (65-115); Osmolality Calculated 281 mOsm/kg (285-295); Sodium 136 mmol/L (136-145); Total Bilirubin 0.2 mg/dL (0.15-1.2); Total Protein 5.9 g/dL (6.6-8.7); Uric Acid 4.5 mg/dL (2.4-5.7)
[2023-07-17 19:15] LABS: Bacteria Urine 1+ /hpf; RBC Urine 0-4 /hpf (0-2); Squamous Epithelial Cell Urine 0-4 /hpf (0-5); WBC Urine 0-4 /hpf (0-5)
[2023-07-17 19:16] LABS: Add Urine Culture? No
[2023-07-17 19:34] LABS: Urine Creatinine 50 mg/dL (28-217); Urine Protein Random 10 mg/dL
--- NOTE | 2023-07-17 20:43 | P.HP_ITS ---
Providers/Chief Complaint Primary Care Provider: Edgardo Matos MD Chief Complaint: IOL History of Present Illness Jamel Walton is a 28 year old @ 39.0 weeks by 13 wk US and unsure LMP. Preg c/b obesity, phentermine use prior to finding out she was , h/o chlamydia, cHTN, rubella non-immune, Rh negative, elevated 1-hr GTT with normal 3-hr GTT. The patient presented to labor and delivery triage for a scheduled induction of labor due to chronic hypertension with intermittent severe blood pressures. The patient feels well and denies any headaches, flashes of light, nausea, chest pain, shortness of breath, vomiting, diarrhea, constipation, dysuria, leakage of fluid, vaginal bleeding. Upon admission she was noted to be closed, thick and high. Review of Systems Narrative: See HPI Medications/Allergies Home Medications Medication Instructions Recorded Confirmed Last Taken Type patellar tracking brace #1 ea 10/26/22 07/16/23 04/27/23 Rx prenat.vits,loree,[id number]-aqvx-spcoy 1 tab PO DAILY 12/19/22 07/16/23 07/08/23 10:00 History labetalol 100 mg tablet 50 mg PO BID #30 tabs 05/21/23 07/16/23 Unknown Rx ferrous sulfate 325 mg (65 mg 325 mg PO DAILY #30 tabs 05/22/23 07/16/23 07/08/23 10:00 Rx iron) tablet Allergies Allergy/AdvReac Type Severity Reaction Status Date / Time amoxicillin Allergy ALGY-Rash Verified 04/27/23 11:23 PFSH Acute PFSH: Medical History Anxiety started on Vistaril; managed by Neva Merchant Closed dislocation of left patella Defect of articular cartilage Depression Hypertension managed by PCP; not taking medication and readings have been normal. No pertinent past medical history neghx: dm,thyroid,dvt/pe PCP: Dr. Matos Tear of lateral meniscus of left knee Surgical History H/O knee surgery (2008) Left knee History of arthroscopic knee surgery (~09/2022) History of tonsillectomy Family History Father Diabetes Heart disease from heart disease at age 53 Hypertension Stroke Grandmother Diabetes Paternal grandmother Family history of thyroid problem Maternal grandmother Grandfather Diabetes Paternal grandfather Heart disease Maternal and Paternal grandfather Hypertension Paternal grandfather Mother Family history of thyroid problem Family/Other Family history of thyroid problem Maternal aunt Cervical cancer Maternal cousin--dx age unknown Breast cancer Paternal aunt--dx age unknown Maternal great aunt--dx age 50-60's Denies family history of Colon cancer Ovarian cancer Hyperlipidemia Uterine cancer Social History Smoking and tobacco status: current every day smoker e-cigarettes E-Cigarette Details: vaporizer device E-cig/vape details: once an hour Female Reproductive History: : 1 Vitals/I&O/Wt Last Vital Signs Temp 98.6 F 07/17/23 19:55 Pulse 83 07/17/23 20:28 Resp 17 07/17/23 19:55 BP 146/92 07/17/23 20:28 O2 Del Method Room Air 07/17/23 19:55 Weight last 48 hrs Weight 259 lb Physical Exam Narrative: General: Alert and oriented x3 Eyes: Pupils equal round and reactive to light and accommodation Mouth: Mucous membranes moist, pharynx non-erythematous Cardiac: Regular rate and rhythm without murmurs Lungs: Clear to auscultation bilaterally without wheezes, crackles or rhonchi Abdomen: Soft, non-tender, fundus consistent with gestational age Extremities: +1 pitting edema in the bilateral lower extremities. Deep tendon reflexes are 2+ bilaterally in the bilateral knees. Data 07/17/23 18:25 07/17/23 18:25 A&P Assessment and plan (1) Supervision of high risk , unspecified, third trimester: The patient is feeling well overall at this time. We will proceed with induction of labor using Cytotec times up to 3 doses. heart tones are currently in the mid 140s with moderate variability and good accelerations. There is a category 1 tracing. The patient is not having any significant contractions. Due to the elevated blood pressures, we will watch for signs of hypertensive emergency. We will treat if needed. The patient's labs have been more consistent with chronic hypertension and not preeclampsia. Her 24-hour urine protein done on 07/10/2023 was 201. This is a decrease from the test done on 06/25/2023. We will certainly watch for signs of severe blood pressure readings and go from there. Currently she is not having symptoms concerning for severe features. All questions were answered. We will proceed with routine care otherwise. GBS is negative. The patient is rubella nonimmune. She is Rh- . (2) Gestational hypertension: (3) Rh negative status during : (4) Rubella non-immune status, antepartum: Attestations Medical Necessity Statement*: The patient will be here for greater than 2 midnights due to routine intrapartum and management of labor and delivery. Coding Level of Care Code Acute Code for [facility] Fwd Diagnoses Supervision of high risk , unspecified, third trimester O09.93 Gestational hypertension O13.9 Rh negative status during O26.899; Z67.91 Rubella non-immune status, antepartum O09.899; Z28.39
[2023-07-17] MEDS: fentaNYL 50 mcg/mL INJ 2mL IVP (22:36)
[2023-07-18] VITALS (104 sets, daily range): BP systolic 98–185; BP diastolic 50–127; PULSE 69–148; RESP 12–18; TEMP 35.9–36.9; O2SAT 96–100
[2023-07-18] MEDS: miSOPROStol 100 mcg tablet 25 MCG VAGINAL ×2 (00:25→05:14)
[2023-07-18] MEDS: fentaNYL 50 mcg/mL INJ 2mL IVP ×4 (00:38→05:18)
[2023-07-18] MEDS: labetalol 5 mg/mL SDV 20mL 20 MG IVP ×2 (01:33→05:31)
[2023-07-18] MEDS: ondansetron 2 mg/ML SDV 2 mL 4 MG IVP ×2 (04:27→11:03)
[2023-07-18] MEDS: lactated ringers 1,000 ML 999 ML IV (05:41)
[2023-07-18] MEDS: dextrose 5%-lactated ringers 1,000 ML 125 ML IV ×2 (06:49→07:30)
--- NOTE | 2023-07-18 07:20 | P.ANESASSM_ITS ---
Pre-Anesthetic Assessment Height/Weight: Height 1.65 m Weight 117.48 kg Temp Pulse Resp BP Pulse Ox O2 Del Method 97.0 F L 93 12 128/73 96 Room Air 07/18/23 04:12 07/18/23 07:15 07/18/23 05:18 07/18/23 07:15 07/18/23 07:13 07/17/23 19:55 epidural Familial anesthetic complications: none Was Beta Angela taken within 24 hours: Yes Was Clonidine taken within 24 hours: N/A Social No alcohol and No tobacco Exam alert, oriented x 3, clear to auscultation bilaterally and regular rate & rhythm Airway Submandibular: within normal limits Cervical ROM: within normal limits Mallampati: Class II Dentition: full Pulmonary None reported CV/HEM Anemia and Hypertension None reported Hepatic None reported GI None reported Metabolic Morbid Obesity [facility] None reported Neuropsych Anxiety and Depression Anesthetic Plan ASA status: 2 Anesthesia: Regional (specify below) Risk of > 500 ml blood loss (7ml/kg in children): No Medications/Allergies Home Medications Medication Instructions Recorded Confirmed Last Taken Type patellar tracking brace #1 ea 10/26/22 07/16/23 04/27/23 Rx prenat.vits,loree,[id number] 1 tab PO DAILY 12/19/22 07/16/23 07/08/23 10:00 History labetalol 100 mg tablet 50 mg PO BID #30 tabs 05/21/23 07/16/23 Unknown Rx ferrous sulfate 325 mg (65 mg 325 mg PO DAILY #30 tabs 05/22/23 07/16/23 07/08/23 10:00 Rx iron) tablet Allergies Allergy/AdvReac Type Severity Reaction Status Date / Time amoxicillin Allergy ALGY-Rash Verified 04/27/23 11:23 Current Medications Generic Name Dose Route Start Last Admin Trade Name Freq PRN Reason Stop Dose Admin Fentanyl 25 - 100 mcg 07/17/23 19:10 07/18/23 05:18 Fentanyl 50 Mcg/Ml Inj 2ml IVP 100 mcg Q1H PRN Administration SEVERE PAIN Dextrose/Lactated Ringer's 1,000 mls @ 125 mls/hr 07/17/23 18:00 07/18/23 06:49 Dextrose 5%-Lactated Ringers IV 125 mls/hr .Q8H WENDIE Administration Lactated Ringer's 1,000 mls @ 999 mls/hr 07/18/23 05:31 07/18/23 05:41 Lactated Ringers IV 999 mls/hr .Q1H1M PRN Administration See label comments Labetalol HCl 20 mg 07/17/23 18:36 07/18/23 05:31 Labetalol 5 Mg/Ml Sdv 20ml IVP 20 mg PRN PRN Administration HYPERTENSION Protocol Ondansetron HCl 4 mg 07/17/23 18:00 07/18/23 04:27 Ondansetron 2 Mg/Ml Sdv 2 Ml IVP 4 mg Q4H PRN Administration NAUSEA AND VOMITING PFSH Anesthesia Medical History Anxiety started on Vistaril; managed by Neva Merchant Closed dislocation of left patella Defect of articular cartilage Depression Hypertension managed by PCP; not taking medication and readings have been normal. No pertinent past medical history neghx: dm,thyroid,dvt/pe PCP: Dr. Matos Tear of lateral meniscus of left knee Surgical History H/O knee surgery (2008) Left knee History of arthroscopic knee surgery (~09/2022) History of tonsillectomy Family History Father Diabetes Heart disease from heart disease at age 53 Hypertension Stroke Grandmother Diabetes Paternal grandmother Family history of thyroid problem Maternal grandmother Grandfather Diabetes Paternal grandfather Heart disease Maternal and Paternal grandfather Hypertension Paternal grandfather Mother Family history of thyroid problem Family/Other Family history of thyroid problem Maternal aunt Cervical cancer Maternal cousin--dx age unknown Breast cancer Paternal aunt--dx age unknown Maternal great aunt--dx age 50-60's Denies family history of Colon cancer Ovarian cancer Hyperlipidemia Uterine cancer Social History Smoking and tobacco status: current every day smoker e-cigarettes E-Cigarette Details: vaporizer device E-cig/vape details: once an hour Female Reproductive History : 1 Data Anesthesia 07/17/23 18:25 07/17/23 18:25 Short CBC 07/17/23 Range/Units 18:25 WBC 9.28 (3.29-11.43) 10^3/uL Hgb 11.80 (11.27-16.99) g/dL Hct 35.2 L (36-47) % MCV 87.3 (85-98) fl Plt Count 250 (157-399) 10^3/cmm Neut % (Auto) 71.9 % Neut # (Auto) 6.66 (1.8-7.7) 10^3/uL BMP 07/17/23 18:25 Sodium 136 Potassium 4.0 Chloride 105 Carbon Dioxide 18 L BUN 7 Creatinine 0.5 Glucose 108 Calcium 8.6 Liver Function 07/17/23 Range/Units 18:25 Total Bilirubin 0.2 (0.15-1.2) mg/dL AST 16 (0-32) U/L ALT 10 (0-33) U/L Alkaline Phosphatase 113 H (35-105) U/L Albumin 3.3 L (3.5-5.2) g/dL Urine 07/17/23 Range/Units 18:10 Urine Color Yellow (Yellow) Urine Appearance Sl hazy A (CLEAR) Urine pH 6 (5-7) Ur Specific [place] 1.015 (1.005-1.030) Urine Protein Neg (Negative) Urine Glucose (UA) Norm (Normal) Urine Ketones Negative (Negative) Urine Nitrate Negative (Negative) Urine Bilirubin Neg (Negative) Ur Leukocyte Esterase Negative (Negative) Urine RBC 0-4 H (0-2) /hpf Urine WBC 0-4 H (0-5) /hpf Blood Bank 07/17/23 18:10 Blood Type AB Negative Rho(D) Type Negative Antibody Screen Negative Cardiac Studies: No Data to Display
--- NOTE | 2023-07-18 07:22 | P.ANES_ITS ---
Anesthesia Procedures Procedure/Date: 07/18/23 epidural Procedure Narrative: epidural complete, bolus given, epidural pump initiated with [employer]OR [employer] education given, vitals taken during procedure and satisfactory throughout, patient admits to decrease pain, report of procedure to OB RN Epidural: Time Out Performed: Yes Consents Signed: Procedure Consent Consent: requested by attending/covering physician, from patient, risks and benefits reviewed and patient agrees to proceed Lumbar Level: L3-L4 Epidural position: sitting Epidural procedure: sterile prep of area, 1% lidocaine to numb the area (3 mL), 18 g needle, negative for paresthesia passed, neg for paresthesia, test dose given, 1.5% xylocaine 1:200k epi (5 mL), 0.2% Ropivacaine bolus ml (5 mL), placed PCEA, no systemic response, sterile dressing applied, L.U.D. no apparent complications and 0.2% Ropiavacaine @ mls/hr (13 mL/hr)
[2023-07-18] MEDS: ROPivacaine syringe 100 MG/50 ML SYRINGE 13 MG EPIDURAL ×2 (07:30→10:22)
[2023-07-18] MEDS: hyDROXYzine 25 mg Capsule 50 MG PO (07:37)
--- NOTE | 2023-07-18 08:16 | PM.PN ---
Subjective Subjective: The patient had spontaneous rupture membranes overnight with mild meconium staining. She received her third dose of Cytotec at approximately 5:30 AM this morning. Her pain increased overnight after SROM and she received a laboring epidural. The patient is now 2 cm dilated with 90% effacement. She is daysi every 4 minutes. heart tones are category 1 with heart rate in the mid 130s with moderate variability and good accelerations. Vitals/I&O/Wt Last Vital Signs Temp 97.0 F L 07/18/23 07:38 Pulse 108 H 07/18/23 07:54 Resp 12 07/18/23 05:18 BP 128/93 07/18/23 07:54 Pulse Ox 97 07/18/23 07:23 O2 Del Method Room Air 07/17/23 19:55 07/17/23 07/18/23 07/18/23 22:59 06:59 14:59 Intake Total 500 / 500 85.417 / 85.417 Balance 500 / 500 85.417 / 85.417 Weight last 48 hrs Weight 259 lb Physical Exam Narrative: General: Alert and oriented x3 Cardiac: Regular rate and rhythm without murmurs Lungs: Clear to auscultation bilaterally without wheezes, crackles or rhonchi Abdomen: Soft, non-tender, fundus consistent with gestational age Extremities: +1 pitting edema in the bilateral lower extremities. Urinary Catheter Management: Bennett: Cath Placed During This Visit: yes Reason for Continuing Indwelling Catheter: Other Urinary Catheter Date of Insertion: 07/18/23 Urinary Catheter Time of Insertion: 07:25 Data 07/17/23 18:25 07/17/23 18:25 A&P Assessment and plan (1) Supervision of high risk , unspecified, third trimester: The patient is doing well overall at this time. We will proceed with the current plan of care. Once 4 hours is up after her last dose of Cytotec, we will reevaluate and if no changes been made plan for starting IV Pitocin to help augment labor. The patient is currently comfortable with the epidural. She does have some anxiety related to the numbness related to it. Reassurance was given. (2) Gestational hypertension: The patient has had some intermittent severe blood pressures. She was given 2 doses of labetalol overnight. Her blood pressures have improved since she has better pain control with the epidural. We will monitor to be sure that they stay in a good range. All questions were answered. The patient and her family are in agreement with the current plan of care. Attestations Medical Necessity Statement*: The patient will be here for greater than 2 midnights due to routine intrapartum and management of labor and delivery. Coding Level of Care Code Acute Code for [facility] Fwd Diagnoses Supervision of high risk , unspecified, third trimester O09.93 Gestational hypertension O13.9
[2023-07-18] MEDS: oxytocin 30 UNIT/500 ML BAG IV (10:01)
--- NOTE | 2023-07-18 15:35 | PM.DELIVERY ---
Delivery Note: Date of delivery: July 18, 2023 Pre-delivery diagnoses: 1. Intrauterine at 39.1 weeks gestation 2. Chronic hypertension 3. Rubella nonimmune 4. Rh- 5. Elevated 1 hour GTT with normal 3-hour GTT Post-delivery diagnoses: 1. Intrauterine status post spontaneous vaginal livery at 39.1 weeks gestation 2. Chronic hypertension 3. Rubella nonimmune 4. Rh- 5. Elevated 1 hour GTT with normal 3-hour GTT 6. Delivery of healthy infant male weighing 7 pounds 14 ounces with Apgars of 8 and 9 Procedure: Spontaneous vaginal delivery Delivering Physician: Edgardo Matos MD Estimated blood loss (mL): 150 Findings: 1. Healthy male weighing 7 pounds 14 ounces with Apgars of 8 and 9 2. Intact placenta with central umbilical cord insertion site Pre-Delivery Course: Jamel Walton is a 28 year old G1 now P1 status post spontaneous vaginal livery @ 39.1 weeks by 13 wk US and unsure LMP. Preg c/b obesity, phentermine use prior to finding out she was , h/o chlamydia, cHTN, rubella non-immune, Rh negative, elevated 1-hr GTT with normal 3-hr GTT. The patient presented to labor and delivery for a scheduled induction of labor on the evening of 07/17/2023 due to chronic hypertension. The patient's blood pressures have been in the 140s to 150s at home. Her 24-hour urine protein the week before was not consistent with preeclampsia. Upon arrival patient was closed, thick and high and was started on Cytotec. She received 3 doses overnight. At 2214 on 07/17/2023 she had spontaneous rupture membranes. The fluid was lightly stained with meconium. The patient made change and by morning was 2 cm dilated. She received a laboring epidural that worked very well for her. IV Pitocin was started to augment labor and the patient made gradual change. There was 1 episode of late decelerations that improved with position change and discontinuing the IV Pitocin. The patient was complete by 12:30 PM on 07/18/2023. Delivery: The patient was allowed to labor down as she was comfortable. The patient began pushing at 1326 on 07/18/2023. Her contractions initially were every 6 to 8 minutes apart. For this reason IV Pitocin was started back at 2 units and titrated upward. This brought the contractions closer together and the patient pushed well and the delivered in the OA position at 1439 on 07/18/2023. The 's left shoulder was the anterior shoulder and it delivered with steady downward pressure. The rest of the infant delivered without complication. The 's mouth and nose were bulb suctioned by myself. The infant was crying shortly after delivery. The was then placed on the mother's chest where the nurses were waiting to care for him. The infant's cord was clamped by myself after approximately 1 minute and cut by the 's father. Cord blood was obtained. The cord was then drained of blood and traction was placed on the umbilical cord and fundal massage was carried out. The placenta delivered without complication at 1445 on 07/18/2023. The placenta was noted to be intact with a central umbilical cord insertion site. The uterus was then massaged and the cervix was inspected and no lacerations were noted. The vaginal wall was inspected and a second-degree midline perineal laceration was noted. This needed suturing. The patient's epidural provided adequate anesthesia. 3-0 Vicryl was used to repair this in a running fashion. The patient tolerated this well. Rectal exam was done afterwards and no sutures were noted in the rectal vault. Good rectal tone was noted. Currently both the mother and are doing well. History History History 1 Term 1 0 Miscarriages/Ectopic 0 Living Children 1 Past Pregnancies Del. Date GA/Weeks Outcome Route Wt Inf Gender Labor Lgth Comp. Anesthesia Location 07/18/23 39 live - full term Vaginal 7 lb 14 oz Male 19 hrs [facility] Delivery Date: 07/18/23 Last Updated by: Edgardo Matos MD cHTN, Induction, 2nd degree perineal laceration A&P Assessment and plan (1) Spontaneous vaginal delivery: (2) Supervision of high risk , unspecified, third trimester: (3) Gestational hypertension: (4) Rubella non-immune status, antepartum: Coding Level of Care Code Acute Code for [facility] Fwd Diagnoses Supervision of high risk , unspecified, third trimester O09.93 Spontaneous vaginal delivery O80 Gestational hypertension O13.9 Rubella non-immune status, antepartum O09.899; Z28.39
[2023-07-18] MEDS: acetaminophen 325 mg Tablet 650 MG PO (18:12)
[2023-07-18] MEDS: docusate sodium 100 mg Capsule PO (18:12)
[2023-07-18] MEDS: benzocaine-menthol 78 gm Canister 1 SPRAY TOPICAL (20:33)
[2023-07-18] MEDS: lanolin oint 7 gm 1 APPLIC TOPICAL (20:33)
[2023-07-18] MEDS: ibuprofen 800 mg tablet PO (20:33)
[2023-07-18] MEDS: miSOPROStol 200 mcg Tablet 800 MCG PR (23:14)
[2023-07-18] MEDS: oxytocin 30 UNIT/500 ML BAG 999 UNIT IV (23:14)
--- NOTE | 2023-07-18 23:54 | PC.NURSE ---
This RN entered room at approximately 2255 to find pt in bathroom had pulled emergency cord. Pt was sitting on the toilet with large softball size blood clot on floor with large amount of blood across the floor of the bathroom. Patient stated she felt like she was still bleeding but needed to void. All other nursing staff entered room and assisted with measuring blood loss with chux pads and sanjay pads. Patient voided into toilet and this RN assisted pt back to bed on clean chux. Fundal massage performed, see pp hemorrhage assessment for measurements. Fundal massage performed q5 min by this ticket writer and charge nurse, Manisha SALAMANCA. Vital signs recorded beginning at 2320 q5 min. This ticket writer contacted Dr. Matos for emergency pp bleed orders. See physician communication. Medications administered. Close monitoring continued. Fundus began to remain firm, midline, and below umbilicus. Bleeding improved. Dr. Matos was updated, see physician communication. Orders received to continue to close monitor and call back if bleeding continued. This RN will continue to monitor closely.
[2023-07-19] VITALS (12 sets, daily range): BP systolic 126–162; BP diastolic 70–101; PULSE 98–109; RESP 14–17; TEMP 36.7–36.9; O2SAT 98–99
[2023-07-19 02:46] LABS: Hematocrit 27.4 % (36-47); Mean Corpuscular HGB Conc 32.5 g/dL (30-55); Mean Corpuscular Hemoglobin 29.1 pg (27-33); Mean Corpuscular Volume 89.5 fl (85-98); Mean Platelet Volume 10.9 fL (7.4-10.4); Platelet Count 184 10^3/cmm (157-399); Red Blood Count 3.06 10^6/uL (3.85-5.65); Red Cell Distribution Width 16.5 % (12.1-15.1); White Blood Count 13.07 10^3/uL (3.29-11.43)
[2023-07-19] MEDS: ibuprofen 800 mg tablet PO ×3 (09:05→21:11)
[2023-07-19] MEDS: docusate sodium 100 mg Capsule PO ×2 (09:05→21:12)
[2023-07-19] MEDS: prenatal vitamin Capsule 1 CAP PO (09:05)
--- NOTE | 2023-07-19 16:42 | P.PN_ITS ---
Subjective Subjective: The patient had passed 2 large clots late last night when she was up going to the bathroom. She had increased bleeding after this and she was given Cytotec, Pitocin was bolused and she was given TXA. Her bleeding began to decrease after this prior to needing further intervention. The patient's bleeding is more like a period at this time for her. She has pain associated with her cramping that is worse with breast-feeding. Medications are helping with this overall. She is ambulating, voiding, passing gas and tolerating food by mouth. Vitals/I&O/Wt Last Vital Signs Temp 98.1 F 07/19/23 15:05 Pulse 103 H 07/19/23 15:19 Resp 17 07/19/23 15:05 BP 148/87 07/19/23 15:19 Pulse Ox 99 07/19/23 04:40 O2 Del Method Room Air 07/19/23 04:40 07/19/23 07/19/23 07/19/23 06:59 14:59 22:59 Intake Total 1610 / 2348.400 Output Total 200 / 1150 700 / 700 Balance 1410 / 1198.400 -700 / -700 Weight last 48 hrs Weight 259 lb Physical Exam Narrative: General: Alert and oriented x3 Cardiac: Regular rate and rhythm without murmurs Lungs: Clear to auscultation bilaterally without wheezes, crackles or rhonchi Abdomen: Soft, mild tenderness over uterus. The uterus is firm and 2 cm below the umbilicus. Extremities: Trace edema in the bilateral lower extremities Urinary Catheter Management: Bennett: Cath Placed During This Visit: yes, but has since been removed by the nurse Reason for Continuing Indwelling Catheter: Other Urinary Catheter Date of Insertion: 07/18/23 Urinary Catheter Time of Insertion: 07:25 Date Urinary Catheter Removed: 07/18/23 Time Urinary Catheter Discontinued: 14:25 Data 07/19/23 02:35 07/17/23 18:25 A&P Assessment and plan (1) Spontaneous vaginal delivery: The patient is doing well overall at this time. 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 We will continue to massage the uterus to be sure that her bleeding stays slow. We will watch overnight to be sure that her bleeding does not return. Her blood pressures have been intermittently elevated and this is typically when she is having more company in the room. She is to keep her activity levels low to help with this. We will consider sending home a prescription for labetalol to be used if needed. Routine discharge instructions were discussed. We will plan for discharge home tomorrow as long as the patient continues to do well overnight. (2) Gestational hypertension: Attestations Medical Necessity Statement*: The patient will be here for greater than 2 midnights due to routine intrapartum and management of labor and delivery with the above complications noted. Coding Level of Care Code Acute Code for Chg Fwd Diagnoses Spontaneous vaginal delivery O80 Gestational hypertension O13.9
[2023-07-19] MEDS: measles,mumps,rubella pf Vial (w/diluent) 0.5 ML SUBCUT (16:48)
[2023-07-20 04:38] VITALS: BP 150/101; PULSE 101; RESP 16; TEMP 36.6; O2SAT 98
[2023-07-20 05:11] VITALS: BP 143/93; PULSE 98
[2023-07-20] MEDS: prenatal vitamin Capsule 1 CAP PO (08:51)
[2023-07-20] MEDS: docusate sodium 100 mg Capsule PO (08:51)
[2023-07-20] MEDS: ibuprofen 800 mg tablet PO (08:51)
[2023-07-20 11:28] VITALS: BP 147/91; PULSE 106; RESP 16; TEMP 36.8; O2SAT 98
--- NOTE | 2023-07-20 11:42 | P.DS_ITS ---
Discharge Providers Date of Admission: 07/17/23 17:50 Date of Discharge: July 20, 2023 Attending Provider at Admission: Edgardo Matos MD Attending Provider at Discharge: Edgardo Matos MD Primary Care Provider: Edgardo Matos MD Diagnoses at Discharge Discharge Diagnosis (1) Spontaneous vaginal delivery: Status: Resolved (2) Gestational hypertension: Status: Acute Other Information Additional DC diagnoses/information: 1.? Intrauterine status post spontaneous vaginal delivery at 39.1 weeks gestation 2.? Chronic hypertension 3.? Rubella nonimmune 4.? Rh- 5.? Elevated 1 hour GTT with normal 3-hour GTT 6.? Delivery of healthy infant male weighing 7 pounds 14 ounces with Apgars of 8 and 9 Reason for Visit Reason for Visit: IOL Brief History: Jamel Walton is a 28 year old G1 now P1 status post spontaneous vaginal livery @ 39.1 weeks by 13 wk US and unsure LMP. Preg c/b obesity, phentermine use prior to finding out she was , h/o chlamydia, cHTN, rubella non-immune, Rh negative, elevated 1-hr GTT with normal 3-hr GTT. The patient presented to labor and delivery for a scheduled induction of labor on the evening of 07/17/2023 due to chronic hypertension.? The patient's blood pressures have been in the 140s to 150s at home.? Her 24-hour urine protein the week before was not consistent with preeclampsia.? Upon arrival patient was closed, thick and high and was started on Cytotec.? She received 3 doses overnight.? At 2214 on 07/17/2023 she had spontaneous rupture membranes.? The fluid was lightly stained with meconium.? The patient made change and by morning was 2 cm dilated.? She received a laboring epidural that worked very well for her.? IV Pitocin was started to augment labor and the patient made gradual change.? There was 1 episode of late decelerations that improved with position change and discontinuing the IV Pitocin.? The patient was complete by 12:30 PM on 07/18/2023. Hospital Course Hospital Course The patient was allowed to labor down as she was comfortable.? The patient began pushing at 1326 on 07/18/2023.? Her contractions initially were every 6 to 8 minutes apart.? For this reason IV Pitocin was started back at 2 units and titrated upward.? This brought the contractions closer together and the patient pushed well and the delivered in the OA position at 1439 on 07/18/2023.? The infant's left shoulder was the anterior shoulder and it delivered with steady downward pressure.? The rest of the infant delivered without complication.? The 's mouth and nose were bulb suctioned by myself.? The was crying shortly after delivery.? The was then placed on the mother's chest where the nurses were waiting to care for him.? The infant's cord was clamped by myself after approximately 1 minute and cut by the infant's father.? Cord blood was obtained.? The cord was then drained of blood and tracti on was placed on the umbilical cord and fundal massage was carried out.? The placenta delivered without complication at 1445 on 07/18/2023.? The placenta was noted to be intact with a central umbilical cord insertion site.? The uterus was then massaged and the cervix was inspected and no lacerations were noted.? The vaginal wall was inspected and a second-degree midline perineal laceration was noted.? This needed suturing.? The patient's epidural provided adequate anesthesia.? 3-0 Vicryl was used to repair this in a running fashion.? The patient tolerated this well.? , the patient did have some complications with bleeding approximately 12 hours after delivery. She was given Cytotec, Pitocin and TXA which got her bleeding under control. The patient did not need a transfusion. Her blood pressures have been elevated and these will be treated with labetalol 100 mg twice a day to start. She is to check her blood pressure twice a day and we will make adjustments as needed. The patient is doing well at this time and may be discharged home. She was advised to decrease her overall activity for the next week or 2 to allow her body to heal. She will follow-up with me in clinic early next week. Discharge instructions were discussed and all questions were answered. Physical Exam Narrative: General: Alert and oriented x3 Cardiac: Regular rate and rhythm without murmurs Lungs: Clear to auscultation bilaterally without wheezes, crackles or rhonchi Abdomen: Soft, mild tenderness over uterus. The uterus is firm and 2 cm below the umbilicus. Extremities: Trace edema in the bilateral lower extremities Urinary Catheter Management: Bennett: Cath Placed During This Visit: yes, but has since been removed by the nurse Reason for Continuing Indwelling Catheter: Other Urinary Catheter Date of Insertion: 07/18/23 Urinary Catheter Time of Insertion: 07:25 Date Urinary Catheter Removed: 07/18/23 Time Urinary Catheter Discontinued: 14:25 Discharge Data Studies Completed and Pending Laboratory Results WBC 13.07 10^3/uL (3.29-11.43) H 07/19/23 02:35 RBC 3.06 10^6/uL (3.85-5.65) L 07/19/23 02:35 Hgb 8.90 g/dL (11.27-16.99) L 07/19/23 02:35 Hct 27.4 % (36-47) L 07/19/23 02:35 MCV 89.5 fl (85-98) 07/19/23 02:35 MCH 29.1 pg (27-33) 07/19/23 02:35 MCHC 32.5 g/dL (30-55) 07/19/23 02:35 RDW 16.5 % (12.1-15.1) H 07/19/23 02:35 Plt Count 184 10^3/cmm (157-399) 07/19/23 02:35 MPV 10.9 fL (7.4-10.4) H 07/19/23 02:35 Neut % (Auto) 71.9 % 07/17/23 18:25 Lymph % (Auto) 18.4 % 07/17/23 18:25 [place] % (Auto) 6.9 % 07/17/23 18:25 Eos % (Auto) 2.0 % 07/17/23 18:25 Baso % (Auto) 0.4 % 07/17/23 18:25 Neut # (Auto) 6.66 10^3/uL (1.8-7.7) 07/17/23 18:25 Lymph # (Auto) 1.7 10^3/uL (0.8-4.8) 07/17/23 18:25 [place] # (Auto) 0.6 10^3/uL (0.2-0.9) 07/17/23 18:25 Eos # (Auto) 0.2 10^3/uL (0.0-0.8) 07/17/23 18:25 Baso # (Auto) 0.0 10^3/uL (0.0-0.1) 07/17/23 18:25 Nucleated RBC % (auto) 0 % 07/17/23 18:25 Nucleated RBCs # 0.0 /100WBC 07/17/23 18:25 Sodium 136 mmol/L (136-145) 07/17/23 18:25 Potassium 4.0 mmol/L (3.5-5.1) 07/17/23 18:25 Chloride 105 mmol/L (98-107) 07/17/23 18:25 Carbon Dioxide 18 mmol/L (22-29) L 07/17/23 18:25 Anion Gap 17.0 (5-19) 07/17/23 18:25 BUN 7 mg/dL (6-20) 07/17/23 18:25 Creatinine 0.5 mg/dL (0.5-0.9) 07/17/23 18:25 GFR Calculation 149.1 mL/min (90-130) H 07/17/23 18:25 Glucose 108 mg/dL (65-115) 07/17/23 18:25 Calculated Osmolality 281 mOsm/kg (285-295) L 07/17/23 18:25 Uric Acid 4.5 mg/dL (2.4-5.7) 07/17/23 18:25 Calcium 8.6 mg/dL (8.5-10.5) 07/17/23 18:25 Total Bilirubin 0.2 mg/dL (0.15-1.2) 07/17/23 18:25 AST 16 U/L (0-32) 07/17/23 18:25 ALT 10 U/L (0-33) 07/17/23 18:25 Alkaline Phosphatase 113 U/L (35-105) H 07/17/23 18:25 Total Protein 5.9 g/dL (6.6-8.7) L 07/17/23 18:25 Albumin 3.3 g/dL (3.5-5.2) L 07/17/23 18:25 Globulin 2.6 g/dL (1.3-4.6) 07/17/23 18:25 Urine Color Yellow (Yellow) 07/17/23 18:10 Urine Appearance Sl hazy (CLEAR) A 10/03/23 18:10 Urine pH 6 (5-7) 07/17/23 18:10 Ur Specific [place] 1.015 (1.005-1.030) 07/17/23 18:10 Urine Protein Neg (Negative) 07/17/23 18:10 Urine Glucose (UA) Norm (Normal) 07/17/23 18:10 Urine Ketones Negative (Negative) 07/17/23 18:10 Urine Blood Neg (Negative) 07/17/23 18:10 Urine Nitrate Negative (Negative) 07/17/23 18:10 Urine Bilirubin Neg (Negative) 07/17/23 18:10 Urine Urobilinogen Norm mg/dL (Negative) 07/17/23 18:10 Ur Leukocyte Esterase Negative (Negative) 07/17/23 18:10 Urine RBC 0-4 /hpf (0-2) H 07/17/23 18:10 Urine WBC 0-4 /hpf (0-5) H 07/17/23 18:10 Ur Squamous Epith Cells 0-4 /hpf (0-5) H 07/17/23 18:10 Amorphous Sediment Not Reportable 07/17/23 18:10 Urine Bacteria 1+ /hpf (NONE) H 07/17/23 18:10 Urine Mucus None /hpf 07/17/23 18:10 U Random Total Protein 10 mg/dL 07/17/23 18:10 Urine Creatinine 50 mg/dL (28-217) 07/17/23 18:10 Protein/Creatinin Ratio 0.20 mg/mg CR 07/17/23 18:10 Blood Type AB Negative 07/17/23 18:10 Rho(D) Type Negative 07/17/23 18:10 Antibody Screen Negative 07/17/23 18:10 Screen Negative (Negative) 07/17/23 18:10 Vitals Last Vital Signs Temp 98.3 F 07/20/23 11:28 Pulse 106 H 07/20/23 11:28 Resp 16 07/20/23 11:28 BP 147/91 07/20/23 11:28 Pulse Ox 98 07/20/23 11:28 O2 Del Method Room Air 07/20/23 11:28 Discharge Plan Discharge Patient Disposition: Home Condition: Good Prescriptions: New ibuprofen 800 mg Tablet 800 mg PO TID Qty: 60 0RF hydrocodone-acetaminophen 5-325 mg Tablet 1 tab PO Q6H PRN (Reason: Moderate To Severe Pain) Qty: 10 0RF Continued prenat.vits,loree,fpq-[id number] Tablet 1 tab PO DAILY Changed ferrous sulfate 325 mg (65 mg iron) tablet 325 mg PO BIDWMEAL Qty: 60 3RF labetalol 100 mg tablet 100 mg PO BID Qty: 30 3RF Rx Instructions: Start medication when SBP>150 or DBP>100 No Action (DME) patellar tracking brace See Rx Instructions .Route .MEDSUPPLY Qty: 1 0RF Rx Instructions: As directed Discharge Orders: Discharge Order (Routine); Ordered 07/20/23 Ordered By: Edgardo Matos Referrals: Edgardo Matos MD [Primary Care Provider] - 07/24/23 8:10 am Discharge Diet: Regular Discharge Activity: Limit activity as instructed Patient Instructions: Depression (DC), Bleeding (DC), Preeclampsia and Eclampsia After Delivery (GEN), Hemorrhage (DC), OB Discharge Report, OB Food/Drug Interaction Guide, OB Care at Home, Opioid Safety, OB [facility] - [facility], OB Vaginal Del iveries Activity Restrictions/Additional Instructions: Please keep your overall activity decreased for the next 1 to 2 weeks as your body heals and then gradually increase. Check your blood pressure twice a day and if it is over 150 systolic or over 100 diastolic, take labetalol 100 mg up to twice a day. Showers are recommended instead of baths for the first 6 weeks. Nothing per vagina for 6 weeks. Discharge Attestations Time Spent in Discharge Care*: greater than 30 min Quality Metrics Clinical Quality Measures [ No reported AMI, CVA or VTE this stay] Coding Level of Care Code Acute Code for Chg Fwd Diagnoses Spontaneous vaginal delivery O80 Gestational hypertension O13.9
[2023-07-20 12:50] VITALS: BP 159/103; PULSE 102; RESP 17; TEMP 36.8; O2SAT 98
[2023-07-20] MEDS: labetalol 200 mg Tablet 100 MG PO (12:59)
[2023-07-20 13:21] VITALS: BP 159/103; PULSE 102; RESP 17; TEMP 36.8; O2SAT 98
== END 2023-07-20 13:10 | disposition home or self-care (01) | DRG 807 ==
LOC: OPOB 07-18 04:45 → OBGYN 07-18 04:45
PROVIDERS: Admitting Provider Family Medicine; PCP Family Medicine; Visit Provider Family Medicine
DX: O13.4 Gestational [pregnancy-induced] hypertension without significant proteinuria, complicating childbirth (principal); Z37.0 Single live birth; O99.214 Obesity complicating childbirth; E66.9 Obesity, unspecified; O77.0 Labor and delivery complicated by meconium in amniotic fluid; O76 Abnormality in fetal heart rate and rhythm complicating labor and delivery; Z3A.39 39 weeks gestation of pregnancy; Z67.91 Unspecified blood type, Rh negative; O75.89 Other specified complications of labor and delivery; Z28.39 Other underimmunization status; Z23 Encounter for immunization
CPT/HCPCS: 36415; 51702; 59025; 59409; 80053; 81001; 82570; 84156; 84550; 85025; 85027; 85460; 86850; 86900; 90384; 90707; 96372; 96374; 96375; 98960; 99211; J2405; J2590; J2795; J3010; J3490; J7120; J7121

== ENCOUNTER → 2024-04-21 14:47 | Outpatient (BNVA) | payer MEDICAID, SELFPAY | PROVIDERS: Visit Provider Nurse Practitioner Women's Health | DX: Z30.9 Encounter for contraceptive management, unspecified (principal) | CPT/HCPCS: 88175 ==

== ENCOUNTER 2024-05-15 09:00 | Outpatient (CLI) | payer MEDICAID, SELFPAY ==
--- NOTE | 2024-05-15 09:00 | US_ITS ---
WS: [id number] ULTRASOUND BREAST LEFT TECHNIQUE: Ultrasound left breast focused area of concern. CLINICAL INFORMATION: N63.20 - Unspecified lump in the left breast, unspecified... COMPARISON: None. FINDINGS: Ultrasound LEFT breast 5 o'clock position 3 cm from the nipple in the area of palpable concern. Jacqueline l underlying parenchymal tissue. No cystic or solid lesions. No suspicious findings in the area of co ncern. US/US breast LT limited* [id number] IMPRESSION: No suspicious findings BI-RADS 2 benign Recommend annual screen mammography age 40
== END 2024-05-15 09:06 | disposition home or self-care (01) ==
PROVIDERS: PCP Family Medicine; Visit Provider Nurse Practitioner Women's Health
DX: N63.23 Unspecified lump in the left breast, lower outer quadrant (principal)
CPT/HCPCS: 76642

== ENCOUNTER 2025-03-31 08:23 | Day surgery (SDC) | payer OTHER, SELFPAY ==
[2025-03-31] VITALS (13 sets, daily range): BP systolic 137–156; BP diastolic 80–102; PULSE 79–96; RESP 15–21; TEMP 36.1–36.4; O2SAT 91–98; BMI 46.5
--- NOTE | 2025-03-31 00:09 | P.HP_ITS ---
Same Day Surgery H&P Indication for Procedure/HPI DATE OF PROCEDURE: March 31, 2025 CHIEF COMPLAINT/INDICATIONFOR SURGICAL PROCEDURE: desires permanent sterilization PREOP DIAGNOSIS: desires permanent sterilization PLANNED PROCEDURE: Operation Date: 03/31/25 09:50 Proposed Procedures p Laparoscopic Bilateral Salpingectomy 31652 Z30.2(Bilateral) - Jacinto Amos MD 30 y.o. desires permanent sterilization Medications/Allergies* Allergies/Adverse Reactions Allergy/AdvReac Type Severity Reaction Status Date / Time amoxicillin Allergy ALGY-Rash Verified 03/30/25 09:22 Pertinent History/Comorbid Conditions* Medical History (Updated 03/12/25 @ 00:09 by Jacinto Amos MD) Defect of articular cartilage Closed dislocation of left patella Tear of lateral meniscus of left knee Anxiety No pertinent past medical history neghx: dm,thyroid,dvt/pe PCP: Dr. Matos Hypertension Depression Surgical History (Updated 12/08/22 @ 09:43 by Cristina Zavaleta APN, WHVICKIE) History of arthroscopic knee surgery (~09/2022) History of tonsillectomy H/O knee surgery (2008) Left knee Family History (Updated 12/19/22 @ 13:56 by Edgardo Matos MD) Cervical cancer Family/Other Maternal cousin--dx age unknown Diabetes Father Grandmother Paternal grandmother Grandfather Paternal grandfather Heart disease Father from heart disease at age 53 Grandfather Maternal and Paternal grandfather Breast cancer Family/Other Paternal aunt--dx age unknown Maternal great aunt--dx age 50-60's Family history of thyroid problem Grandmother Maternal grandmother Mother Family/Other Maternal aunt Hypertension Father Grandfather Paternal grandfather Stroke Father Denies family history of Colon cancer Ovarian cancer Hyperlipidemia Uterine cancer Social History Smoking and tobacco/nicotine status: current every day tobacco/nicotine user e- cigarettes E-Cigarette Details: vaporizer device Pertinent Exam Findings alert, oriented x 3, clear to auscultation bilaterally and regular rate & rhythm Recommendations Surgery/Procedure today Coding Level of Care Code Acute Code for Chg Fwd
[2025-03-31 08:53] LABS: OR HCG Qualitative Urine Negative (Negative)
--- NOTE | 2025-03-31 09:05 | W.PM.OPSUD ---
Surgery/Procedure H&P Update DATE OF PROCEDURE: March 31, 2025 DATE H&P PERFORMED: 03/31/25 H&P UPDATE INFORMATION: I have reviewed H&P completed within last 30 days, I have examined patient prior to procedure and No changes to prior documentation PREOP DIAGNOSIS: desires permanent sterilization PLANNED PROCEDURE: Operation Date: 03/31/25 09:50 Proposed Procedures p Laparoscopic Bilateral Salpingectomy 47792 Z30.2(Bilateral) - Jacinto Amos MD
[2025-03-31] MEDS: sodium chloride 0.9% 1,000 ML 30 ML IV (09:14)
--- NOTE | 2025-03-31 10:31 | ANES.PREANE2 ---
Pre-Anesthetic Assessment Height/Weight: Height 1.65 m Weight 127.006 kg Temp Pulse Resp BP Pulse Ox O2 Del Method O2 Flow Rate 97.0 F L 88 16 139/102 96 Room Air 6 03/31/25 08:50 03/31/25 08:50 03/31/25 08:50 03/31/25 08:50 03/31/25 08:50 03/31/25 08:54 03/31/25 10:26 Preop Diagnosis: desires permanent sterilization Operation Date: 03/31/25 09:50 Proposed Procedures p Laparoscopic Bilateral Salpingectomy 07040 Z30.2(Bilateral) - Jacinto Amos MD Familial anesthetic complications: none Was Beta Angela taken within 24 hours: N/A (patient is on BB did not take.) Was Clonidine taken within 24 hours: N/A Last intake: Intake Last Liquid Date 03/30/25 Last Liquid Time 21:00 Last Solid Date 03/30/25 Last Solid Time 21:00 Social No alcohol and No tobacco Exam alert, oriented x 3, clear to auscultation bilaterally and regular rate & rhythm Airway Submandibular: within normal limits Cervical ROM: within normal limits Mallampati: Class I Dentition: full Pulmonary None reported CV/HEM Hypertension None reported Hepatic None reported GI None reported Metabolic Morbid Obesity [facility] [place] None reported Neuropsych Anxiety Anesthetic Plan ASA status: 2 Anesthesia: General Medications/Allergies Home Medications ?Medication ?Instructions ?Recorded ?Confirmed ?Last Taken ?Type albuterol sulfate 90 mcg/actuation 2 inh inhalation QID PRN shortness 11/29/23 03/30/25 Unknown Rx aerosol inhaler of breath or wheezing #8.5 grams left knee hinged economy knee brace #1 ea 06/10/24 02/25/25 Unknown Rx ketoconazole 2 % topical cream 1 applic topical BID PRN Rash #30 02/24/25 03/31/25 Unknown Rx grams bupropion HCl 150 mg tablet,12 hr 150 mg PO BID #60 tabs 03/30/25 03/30/25 03/30/25 Rx sustained-release (Wellbutrin SR) labetalol 100 mg tablet 100 mg PO BID #60 tabs 03/30/25 03/30/25 03/31/25 Rx oxycodone-acetaminophen 5 mg-325 1 tab PO BID PRN pain #20 tabs 03/31/25 Unknown Rx mg tablet (Percocet) Allergies Allergy/AdvReac Type Severity Reaction Status Date / Time amoxicillin Allergy ALGY-Rash Verified 03/30/25 09:22 Current Medications Generic Name Dose Route Start Last Admin Trade Name Charles PRN Reason Stop Dose Admin Sodium Chloride 1,000 mls @ 30 mls/hr 03/31/25 08:30 03/31/25 09:14 Sodium Chloride 0.9% IV 04/01/25 08:29 30 mls/hr .Q24H WENDIE Administration PFSH Anesthesia Medical History Defect of articular cartilage Closed dislocation of left patella Tear of lateral meniscus of left knee Anxiety No pertinent past medical history neghx: dm,thyroid,dvt/pe PCP: Dr. Matos Hypertension Depression Surgical History History of arthroscopic knee surgery (~09/2022) History of tonsillectomy H/O knee surgery (2008) Left knee Family History Father Diabetes Heart disease from heart disease at age 53 Hypertension Stroke Grandmother Diabetes Paternal grandmother Family history of thyroid problem Maternal grandmother Grandfather Diabetes Paternal grandfather Heart disease Maternal and Paternal grandfather Hypertension Paternal grandfather Mother Family history of thyroid problem Family/Other Family history of thyroid problem Maternal aunt Cervical cancer Maternal cousin--dx age unknown Breast cancer Paternal aunt--dx age unknown Maternal great aunt--dx age 50-60's Denies family history of Colon cancer Ovarian cancer Hyperlipidemia Uterine cancer Social History Smoking and tobacco/nicotine status: current every day tobacco/nicotine user e-cigarettes E-Cigarette Details: vaporizer device
[2025-03-31] MEDS: fentaNYL 50 mcg/mL INJ 2mL IVP ×2 (10:40→10:45)
[2025-03-31] MEDS: ondansetron 2 mg/ML SDV 2 mL 4 MG IVP (10:40)
--- NOTE | 2025-03-31 11:05 | P.OP_ITS ---
Operative Report Date of procedure: March 31, 2025 Pre-op diagnosis: desires permanent sterilization Post-op diagnosis: same Post-op findings: normal uterus, tubes, and ovaries Procedure done: laparoscopic bilateral salpingectomy Implants: none Specimens removed/disposition: bilateral fallopian tube segments Surgeon: Jacinto Amos MD Anesthesia: General Estimated blood loss (mL): 5 Complications: none Findings: normal uterus, tubes, and ovaries Condition: stable Disposition: PACU Brief History: 30 y.o. desires permanent sterilization Procedure: Informed consent was obtained. The patient was taken to the OR and placed on the table. General endotracheal anesthesia was induced. The abdomen was then prepped and draped in the usual fashion. A 5 mm subumbilical skin incision was made. A 5 mm trocar with sheath was then inserted into the peritoneal cavity under direct visualization with the laparoscope. After confirming intraperitoneal position, pneumoperitoneum was achieved. Two separate 5 mm incisions were made in the right and left mid- quadrants. 5 mm trocars with sheaths were then inserted into the peritoneal cavity under direct visualization with the laparoscope. The right fallopian tube was then identified to its fimbrial end. Starting at the fimbrial end, the mesosalpinx was then coagulated and cut using the Ligasure. The right fallopian tube was excised and removed via one of the ports. This was sent to pathology. There was no bleeding seen. Similarly, the left fallopian tube was identified to its fimbrial end. The left fallopian tube was excised and removed, sent to pathology. There was no bleeding. All instruments were then removed from the peritoneal cavity after the pneumoperitoneum was allowed to escape. The skin incisions were closed using 3- O chromic in subcuticular fashion. Dermabond was applied. The patient was then placed supine and awakened, taken the the PACU in good condition. Postop condition: stable EBL: 5 cc Complications: none Sponge, needles, and instruments counts correct x two
[2025-03-31] MEDS: oxyCODONE-APAP 5-325 mg Tablet 1 TAB PO (11:30)
--- NOTE | 2025-03-31 12:05 | ANE.PACU2 ---
Inpatient post-anesthesia follow up: Airway intact: Yes Vital signs: Temperature 97.6 F Pulse Rate 80 Respiratory Rate 16 Blood Pressure 151/93 Pulse Oximetry 97 Oxygen Delivery Me thod Room Air Oxygen Flow Rate 2 Fraction of Inspir ed Oxygen Hydration adequate: Yes Nausea and vomiting: No Pain level: 1 Mental status: Baseline
== END 2025-03-31 12:05 | disposition home or self-care (01) ==
PROVIDERS: Student in an Organized Health Care Education/Training Program; PCP Family Medicine; Visit Provider Obstetrics & Gynecology
PROC: (CPT 58661; principal; 2025-03-31 09:40)
DX: Z30.2 Encounter for sterilization (principal); I10 Essential (primary) hypertension; E66.01 Morbid (severe) obesity due to excess calories; Z68.42 Body mass index [BMI] 45.0-49.9, adult; F41.9 Anxiety disorder, unspecified; F17.290 Nicotine dependence, other tobacco product, uncomplicated
CPT/HCPCS: 58661; 81025; 88302; A4216; J1100; J1885; J2250; J2405; J2704; J3010; J3490; J7030; J9999